=== PATIENT | male | born 1995 | race Caucasian/White ===

== ENCOUNTER 2017-04-14 22:33 | Emergency (ER) | payer OTHER ==
[2017-04-14 22:38] VITALS: BP 136/63
--- NOTE | 2017-04-14 22:41 | ER Document Report ---
HPI - HPI Patient complains to provider of: mouth lesion, face rash, tongue yellow Onset: This morning Onset/Duration: Sudden Pain Level: 3 Context: 21 yo anxious [employer] on leave due to right ankle injury, chews tobacco, c/o dry face patches, yellow discoloration to tongue and yellow patches inside left cheek. Worried he has HSV since 3 providers hipolito him he has genital HPV. Associated Symptoms: None Exacerbated by: Denies Relieved by: Denies Similar symptoms previously: No Recently seen / treated by doctor: No - ROS ROS below otherwise negative: Yes Systems Reviewed and Negative: Yes All other systems reviewed and negative Past Medical History - General Information source: Patient - Social History Smoking Status: Current Every Day Smoker Chew tobacco use (# tins/day): Yes Frequency of alcohol use: None Drug Abuse: None Lives with: Family Family History: Reviewed & Not Pertinent Renal/ Medical History: Reports: Other - HPV Past Surgical History: Reports: Hx Appendectomy Vertical Provider Document - CONSTITUTIONAL Agree With Documented VS: Yes Exam Limitations: No Limitations General Appearance: No Apparent Distress - INFECTION CONTROL TRAVEL OUTSIDE OF THE [place] IN LAST 30 DAYS: No - HEENT HEENT: Normocephalic Notes: dry patches on cheeks, dermatitis or eczema, mild inflamed. posterior tongue with hellow discoloration that does not come off with scraping. left cheek buccal mucosa with white/yellow adherant plaque versus leson. I explained to pt that it is very important that he stop tobacco chewing ang will need possible biopsy to rule out oral skin cancer. - NECK Neck: Supple. negative: Lymphadenopathy-Left, Lymphadenopathy-Right - RESPIRATORY O2 Sat by Pulse Oximetry: 99 - MUSCULOSKELETAL/EXTREMETIES Musculoskeletal/Extremeties: JAYLIN CORDOBA - NEURO Level of Consciousness: Awake, Alert - DERM Integumentary: Warm, Dry, Rash - he also points out minimal tiny papular bilater forearm rash that I can barely see. Course - Vital Signs Vital signs: Temp Pulse Resp BP Pulse Ox 98.7 F 99 18 136/63 H 99 04/14/17 22:37 04/14/17 22:37 04/14/17 22:37 04/14/17 22:37 04/14/17 22:37 Discharge - Discharge Clinical Impression: tongue discoloration, Facial dermatitis, left cheek plaque lesions Condition: Good Disposition: HOME, SELF-CARE Instructions: Atopic Dermatitis (Eczema) ([facility]), Mouth Sores ([facility]) Additional Instructions: stop using chewing tobacco you must see an oral surgeon about the left cheek plaque lesions, you may need a biopsy of this skin use Aquaphor ointment on your dry cheeks. hydrocortosone cream may help the exzema on the cheeks also to er any concerns Referrals: ASHLEY JOHNS DO [ACTIVE STAFF] - Follow up as needed JOSIAH BURTON DDS [ACTIVE STAFF] - Follow up as needed
== END 2017-04-14 23:05 | disposition home or self-care (01) ==
LOC: ER 22:33
DX: K13.70 Unspecified lesions of oral mucosa (principal); L30.9 Dermatitis, unspecified; F17.229 Nicotine dependence, chewing tobacco, with unspecified nicotine-induced disorders
CPT/HCPCS: 99282

== ENCOUNTER 2019-01-24 15:57 | Emergency (ER) | payer OTHER ==
[2019-01-24] MEDS ORDERED: OXYCODONE-ACETAMINOPHEN 5-325 MG TABLET PO ONE (17:12)
--- NOTE | 2019-01-24 17:13 | ER Document Report ---
HPI - HPI Time Seen by Provider: 01/24/19 17:00 Pain Level: 3 Notes: Patient is an otherwise healthy 23-year-old male presenting to the emergency department with complaints of right foot and ankle pain and swelling. Patient denies any recent trauma to this area. He denies any insect bites. He does report history of surgery to this area and states he has metal pins. - CONSTITUTIONAL Constitutional: DENIES: Fever, Chills - EENT EENT: DENIES: Sore Throat, Ear Pain, Eye problems - NEURO Neurology: DENIES: Headache, Weakness, Vision blurred, Dizzinesss / Vertigo - CARDIOVASCULAR Cardiovascular: DENIES: Chest pain - RESPIRATORY Respiratory: DENIES: Trouble Breathing, Coughing - GASTROINTESTINAL Gastrointestinal: DENIES: Abdominal Pain, Black / Bloody Stools - URINARY Urinary: DENIES: Dysuria, Urgency, Frequency - REPRODUCTIVE Reproductive: DENIES: : - MUSCULOSKELETAL Musculoskeletal: REPORTS: Extremity pain Past Medical History - General Information source: Patient - Social History Smoking Status: Never Smoker Chew tobacco use (# tins/day): Yes Frequency of alcohol use: None Drug Abuse: None Family History: Reviewed & Not Pertinent Patient has suicidal ideation: No Patient has homicidal ideation: No - Past Medical History Cardiac Medical History: Reports: Hx Hypertension Renal/ Medical History: Denies: Hx Peritoneal Dialysis Past Surgical History: Reports: Hx Appendectomy, Hx Orthopedic Surgery - right ankle Vertical Provider Document - CONSTITUTIONAL Notes: PHYSICAL EXAMINATION: GENERAL: Well-appearing, well-nourished and in no acute distress. HEAD: Atraumatic, normocephalic. EYES: Pupils equal round extraocular movements intact, conjunctiva are normal. ENT: Nares patent NECK: Normal range of motion LUNGS: No respiratory distress Musculoskeletal: Normal range of motion, swelling noted to right foot, strong dorsalis pedis pulse, strong posterior tibialis pulse. Slight erythema noted, no obvious infection. Normal motor and sensation distal to area of concern. NEUROLOGICAL: Normal speech, normal gait. PSYCH: Normal mood, normal affect. SKIN: Warm, Dry, normal turgor, no rashes or lesions noted. - INFECTION CONTROL TRAVEL OUTSIDE OF THE [place] IN LAST 30 DAYS: No Course - Re-evaluation Re-evalutation: Ankle X-Ray 01/24/19 17:13 IMPRESSION: Postsurgical changes of medial malleolus and distal fibula fixation without evidence of hardware complication. No acute bone abnormality. Foot X-Ray 01/24/19 17:13 IMPRESSION: Postsurgical changes of medial malleolus and distal fibula fixation without evidence of hardware complication. No acute bone abnormality. Radiology as outlined above. No fracture or dislocation noted. No acute bony abnormality. Possible this could be an atypical gout presentation will start patient on a round of prednisone. Patient encouraged to follow-up with primary care and/or orthopedics if pain continues. Patient verbalizes understanding and agreement with this plan. The patient's emergency department workup and current diagnosis were explained to the patient and or family. Follow-up instructions were provided. Medications if prescribed were discussed. Instructions for when to return to the emergency department including specific worrisome symptoms were discussed with the patient and/or family. - Vital Signs Vital signs: Temp Pulse Resp BP Pulse Ox 98.2 F 84 14 147/90 H 97 01/24/19 16:39 01/24/19 16:39 01/24/19 16:39 01/24/19 16:39 01/24/19 16:39 Procedures - Immobilization Right foot Pre-Proc Neuro Vasc Exam: Normal Immobilizer type: Dar wrap, Post-op shoe Performed by: PCT Post-Proc Neuro Vasc Exam: Normal Discharge - Discharge Clinical Impression: Right foot pain Condition: Stable Disposition: HOME, SELF-CARE Additional Instructions: Diagnosis: Acute right ankle and foot pain Ice & Elevation Apply ice packs frequently against the painful area. Many different schedules are recommended, such as "20 minutes on, 20 minutes off" or "one hour ice, two hours rest." If you need to work, you may need to go longer between ice treatments. You should plan to have the area ice packed AT LEAST one-fourth of the time. The ice should be applied over the wrap, tape, or splint, or over a layer of cloth -- not directly against the skin. Some ice bags have a built-in cloth and can be put directly on the skin. Your injured part should be elevated as much as possible over the next 48 hours. Try to keep the injury above the level of the heart. Avoid use of the injured area. Elevation and rest will decrease the swelling. Ibuprofen Ibuprofen is an excellent, safe drug for pain control. In addition, it has potent antiinflammatory effects which are beneficial, especially in the treatment of injuries, arthritis, or tendonitis. It's best to take ibuprofen with food. Persons with ulcer disease or allergy to aspirin should notify their physician of this before taking ibuprofen. Take the medication exactly as prescribed. Don't take additional doses unless instructed to do so by your doctor. If you develop wheezing, shortness of breath, hives, faintness, stomach pain, vomiting, or dark black stools, return for re-evaluation at once. The x-rays were negative for any fracture or dislocation. Please take ibuprofen [id number] as directed to help with pain and inflammation. Please take prednisone as prescribed. Call and schedule a follow-up appointment with primary care so that they can refer you to an orthopedic. A copy of your x-rays were given to you in this file. Prescriptions: Prednisone [Deltasone 20 mg Tablet] 3 tab PO DAILY 5 Days #15 tablet Forms: Return to Work Referrals: LILIAN PETERS, [ACTIVE STAFF] - Follow up as needed
--- NOTE | 2019-01-24 17:40 | RADIOLOGY REPORT (SQ) ---
EXAM DESCRIPTION: FOOT RIGHT COMPLETE; ANKLE RIGHT COMPLETE COMPLETED DATE/TIME: 01/24/2019 5:24 pm REASON FOR STUDY: RT FOOT PAIN; RT ANKLE PAIN COMPARISON: None. NUMBER OF VIEWS: Three views of both the foot and ankle. TECHNIQUE: AP, lateral and oblique radiographic images acquired of the right foot and ankle. LIMITATIONS: None. FINDINGS: MINERALIZATION: Normal. BONES: Postsurgical changes screw fixation of the medial malleolus and plate and screw fixation of th e distal fibula. No fixation hardware fracture or findings of loosening. No acute fracture or dislo cation. No worrisome bone lesions. JOINTS: No effusions. SOFT TISSUES: No soft tissue swelling. No foreign body. OTHER: No other significant finding. IMPRESSION: Postsurgical changes of medial malleolus and distal fibula fixation without evidence of hardware complication. No acute bone abnormality. TECHNICAL DOCUMENTATION: JOB ID: [id number] [employer]- All Rights Reserved Reading location - IP/workstation name: [email or web address]
--- NOTE | 2019-01-24 17:40 | RADIOLOGY REPORT (SQ) ---
EXAM DESCRIPTION: FOOT RIGHT COMPLETE; ANKLE RIGHT COMPLETE COMPLETED DATE/TIME: 01/24/2019 5:24 pm REASON FOR STUDY: RT FOOT PAIN; RT ANKLE PAIN COMPARISON: None. NUMBER OF VIEWS: Three views of both the foot and ankle. TECHNIQUE: AP, lateral and oblique radiographic images acquired of the right foot and ankle. LIMITATIONS: None. FINDINGS: MINERALIZATION: Normal. BONES: Postsurgical changes screw fixation of the medial malleolus and plate and screw fixation of th e distal fibula. No fixation hardware fracture or findings of loosening. No acute fracture or dislo cation. No worrisome bone lesions. JOINTS: No effusions. SOFT TISSUES: No soft tissue swelling. No foreign body. OTHER: No other significant finding. IMPRESSION: Postsurgical changes of medial malleolus and distal fibula fixation without evidence of hardware complication. No acute bone abnormality. TECHNICAL DOCUMENTATION: JOB ID: [id number] [email or web address]- All Rights Reserved Reading location - IP/workstation name: [email or web address]
[2019-01-24] MEDS ORDERED: PREDNISONE 20 MG TABLET PO ONE (18:23)
[2019-01-24 18:40] VITALS: BP 141/83
== END 2019-01-24 18:40 | disposition home or self-care (01) ==
LOC: ER 15:57
DX: M79.671 Pain in right foot (principal); I10 Essential (primary) hypertension
CPT/HCPCS: 99283; 73610; 73630; J7512

== ENCOUNTER 2019-08-14 17:21 | Emergency (ER) | payer OTHER ==
[2019-08-14 17:27] VITALS: BP 168/79
--- NOTE | 2019-08-14 17:30 | ER Document Report ---
HPI - HPI Time Seen by Provider: 08/14/19 17:25 Onset/Duration: Persistent Quality of pain: Achy Pain Level: 3 Context: Patient presents complaining of tender lump to the dorsal aspect of the left foot that he noticed 4 days ago. Patient denies any recent trauma to the foot. Patient denies any fever or redness. Patient complains of increased pain when he is wearing shoes. Associated Symptoms: denies: Fever Exacerbated by: Movement, Walking Relieved by: Denies Similar symptoms previously: No Recently seen / treated by doctor: No - ROS ROS below otherwise negative: Yes Systems Reviewed and Negative: Yes All other systems reviewed and negative - CONSTITUTIONAL Constitutional: DENIES: Fever - NEURO Neurology: DENIES: Weakness - MUSCULOSKELETAL Musculoskeletal: REPORTS: Extremity pain - DERM Skin Color: Normal Skin Problems: None Past Medical History - General Information source: Patient - Social History Smoking Status: Never Smoker Chew tobacco use (# tins/day): Yes Frequency of alcohol use: None Drug Abuse: None Occupation: [employer] Family History: Reviewed & Not Pertinent - Past Medical History Cardiac Medical History: Reports: Hx Hypertension Renal/ Medical History: Denies: Hx Peritoneal Dialysis Past Surgical History: Reports: Hx Appendectomy, Hx Orthopedic Surgery - R ankle Vertical Provider Document - CONSTITUTIONAL Agree With Documented VS: Yes Exam Limitations: No Limitations General Appearance: WD/WN, No Apparent Distress - INFECTION CONTROL TRAVEL OUTSIDE OF THE [place] IN LAST 30 DAYS: No - HEENT HEENT: Atraumatic, Normocephalic - NECK Neck: Normal Inspection - RESPIRATORY Respiratory: No Respiratory Distress - CARDIOVASCULAR Pulses: Normal: Dorsalis pedis - MUSCULOSKELETAL/EXTREMETIES Musculoskeletal/Extremeties: MAEW, FROM, Tender - Patient with a mobile 1/4 centimeters diameter subcutaneous nodular lesion, no overlying erythema or edema. No calor. - NEURO Level of Consciousness: Awake, Alert, Appropriate Motor/Sensory: No Motor Deficit - DERM Integumentary: Warm, Dry Course - Re-evaluation Re-evalutation: 08/14/19 Patient with subcutaneous mobile lesion suspicious for likely ganglion cyst. Discussed worsening signs or symptoms of patient should return immediately for. Patient encouraged to follow-up with orthopedic surgeon for definitive management. - Vital Signs Vital signs: Temp Pulse Resp BP Pulse Ox 98.7 F 89 16 168/79 H 99 08/14/19 17:25 08/14/19 17:25 08/14/19 17:25 08/14/19 17:25 08/14/19 17:25 Discharge - Discharge Clinical Impression: Subcutaneous cyst Condition: Stable Disposition: HOME, SELF-CARE Instructions: Ganglion Cyst ([facility]), Use of [id number] Ibuprofen ([facility]) Additional Instructions: Return immediately for any new or worsening symptoms Followup with your primary care provider, call tomorrow to make a followup appointment Follow-up with orthopedic surgeon for removal Referrals: RIK BHANDARI JR, DO [ACTIVE PROVISIONAL STAFF] - Follow up as needed
== END 2019-08-14 17:33 | disposition home or self-care (01) ==
LOC: ER 17:21
DX: M67.40 Ganglion, unspecified site (principal); Z72.0 Tobacco use; I10 Essential (primary) hypertension
CPT/HCPCS: 99283

== ENCOUNTER 2019-08-30 22:41 | Emergency (ER) | payer OTHER ==
--- NOTE | 2019-08-30 23:36 | ER Document Report ---
ED Medical Screen (RME) - General Chief Complaint: Skin Problem Stated Complaint: POSSIBLE CYST ON LEFT FOOT Time Seen by Provider: 08/30/19 23:34 Notes: HPI: 23-year-old male presenting with continued pain to a tender area on the lateral left dorsal foot. Patient states he was seen previously told he had a cyst in that area but [facility] but cannot wear his boots at work because of the discomfort. Is requesting reexamination of the area. States he did not have an x-ray last time but denies acute trauma PHYSICAL EXAMINATION: There is a small mobile mildly tender area on the lateral aspect of the left midfoot on the dorsal portion. No overlying erythema. No tenderness on the plantar aspect of the foot I have greeted and performed a rapid initial assessment of this patient. A comprehensive ED assessment and evaluation of the patient, analysis of test results and completion of medical decision making process will be conducted by an additional ED providers. TRAVEL OUTSIDE OF THE [place] IN LAST 30 DAYS: No - Related Data Allergies/Adverse Reactions: cephalexin [From Keflex] Allergy (Verified 08/14/19 17:26) Penicillins Allergy (Verified 08/14/19 17:26) Past Medical History - Social History Chew tobacco use (# tins/day): Yes - Past Medical History Cardiac Medical History: Reports: Hx Hypertension Renal/ Medical History: Denies: Hx Peritoneal Dialysis Past Surgical History: Reports: Hx Appendectomy, Hx Orthopedic Surgery - R ankle Physical Exam - Vital signs Vitals: Temp Pulse Resp BP Pulse Ox 98.7 F 90 16 162/78 H 98 08/30/19 22:47 08/30/19 22:47 08/30/19 22:47 08/30/19 22:47 08/30/19 22:47 Course - Vital Signs Vital signs: Temp Pulse Resp BP Pulse Ox 98.7 F 90 16 162/78 H 98 08/30/19 23:09 08/30/19 22:47 08/30/19 22:47 08/30/19 22:47 08/30/19 22:47
--- NOTE | 2019-08-31 00:33 | RADIOLOGY REPORT (SQ) ---
EXAM DESCRIPTION: XR FOOT 3 OR MORE VIEWS COMPLETED DATE/TME: 08/30/2019 23:34 CLINICAL HISTORY: 23 years Male, lateral foot pain COMPARISON: None. Findings: Bones, joints, and soft tissues of the LEFT XR FOOT 3 OR MORE VIEWS appear intact. IMPRESSION: No acute findings.
--- NOTE | 2019-08-31 01:25 | ER Document Report ---
HPI - HPI Time Seen by Provider: 08/30/19 23:34 Pain Level: 4 Notes: RME HPI: 23-year-old male presenting with continued pain to a tender area on the lateral left dorsal foot. Patient states he was seen previously told he had a cyst in that area but [facility] but cannot wear his boots at work because of the discomfort. Is requesting reexamination of the area. States he did not have an x-ray last time but denies acute trauma - EENT EENT: DENIES: Sore Throat, Ear Pain, Eye problems - CARDIOVASCULAR Cardiovascular: DENIES: Chest pain - RESPIRATORY Respiratory: DENIES: Trouble Breathing, Coughing - REPRODUCTIVE Reproductive: DENIES: : - MUSCULOSKELETAL Musculoskeletal: REPORTS: Extremity pain Past Medical History - General Information source: Patient - Social History Smoking Status: Current Every Day Smoker Chew tobacco use (# tins/day): Yes Frequency of alcohol use: None Drug Abuse: None Family History: Reviewed & Not Pertinent Patient has homicidal ideation: Yes - Past Medical History Cardiac Medical History: Reports: Hx Hypertension Renal/ Medical History: Denies: Hx Peritoneal Dialysis Past Surgical History: Reports: Hx Appendectomy, Hx Orthopedic Surgery - R ankle Vertical Provider Document - CONSTITUTIONAL Notes: PHYSICAL EXAMINATION: GENERAL: Well-appearing, well-nourished and in no acute distress. HEAD: Atraumatic, normocephalic. EYES: Pupils equal round extraocular movements intact, conjunctiva are normal. ENT: Nares patent NECK: Normal range of motion LUNGS: No respiratory distress Musculoskeletal: Normal range of motion, small mobile mildly tender area on the lateral aspect of the left midfoot on the dorsal portion. No overlying erythema. No tenderness on the plantar aspect of the foot NEUROLOGICAL: Normal speech. PSYCH: Normal mood, normal affect. SKIN: Warm, Dry, normal turgor, no rashes or lesions noted. - INFECTION CONTROL TRAVEL OUTSIDE OF THE [place] IN LAST 30 DAYS: No Course - Re-evaluation Re-evalutation: 08/31/19 01:20 X-ray negative today. Patient requesting crutches. Will start patient on Toradol for pain. Encourage patient to please contact [place] in [place] of getting a sooner appointment. - Vital Signs Vital signs: Temp Pulse Resp BP Pulse Ox 98.7 F 90 16 162/78 H 98 08/30/19 23:09 05/22/20 22:47 08/30/19 22:47 08/30/19 22:47 08/30/19 22:47 Discharge - Discharge Clinical Impression: Ganglion cyst of left foot Condition: Stable Disposition: HOME, SELF-CARE Additional Instructions: Please use the crutches to stay off the foot to help with your pain. Take the pain medication that I have prescribed. Call the [place] and try to get a sooner follow-up appointment. Ganglion Cyst A ganglion cyst is jelly-like material inside a tough coating. The cyst usually forms near an old tendon injury. Symptoms begin when the cyst gets big enough to "get in the way." If the cyst is not growing and not hurting, it doesn't need treatment. Symptoms of a cyst can be eased by injection of cortisone. The cysts can be reduced in size by sucking the jelly material out of it (the cyst will usually grow back). A splint helps ease symptoms. We often give oral antiinflammatory medicine. Large cysts, or those that continue to cause pain, should be removed surgically. Come back if the area becomes increasingly red, swollen, or increasingly tender. Prescriptions: Ketorolac Tromethamine [Toradol 10 mg Tablet] 10 mg PO Q6HP PRN #24 tablet PRN Reason: Forms: Special Work Note
[2019-08-31 01:55] VITALS: BP 146/72
== END 2019-08-31 01:55 | disposition home or self-care (01) ==
LOC: ER 22:41
DX: M67.472 Ganglion, left ankle and foot (principal); M79.672 Pain in left foot; F17.290 Nicotine dependence, other tobacco product, uncomplicated
CPT/HCPCS: 99283

== ENCOUNTER 2019-11-04 18:39 | Emergency (ER) | payer OTHER ==
[2019-11-04] MEDS ORDERED: DEXAMETHASONE SOD PHOS INJ 10 MG/1 ML VIAL IM ONE (19:55)
--- NOTE | 2019-11-04 19:59 | ER Document Report ---
ED Skin Rash/Insect Bite/Abscs - General Chief Complaint: Skin Problem Stated Complaint: POSSIBLE POISON MEMO Time Seen by Provider: 11/04/19 19:54 Mode of Arrival: Ambulatory Information source: Patient TRAVEL OUTSIDE OF THE [place] IN LAST 30 DAYS: No - HPI Patient complains to provider of: Skin rash/lesion Onset: Last week Onset/Duration: Gradual, Persistent, Worse Quality of pain: Achy Severity: Severe Pain Level: 4 Skin Character: Erythema, Macules, Papules, Patchy, Rash, Thickening Skin Temperature: Warm Quality of rash: Itchy Identify cause: Yes - Poison memo Other exposure: Poison memo Exacerbated by: Other - Heat Relieved by: Denies Similar symptoms previously: Yes Recently seen / treated by doctor: No - Related Data Allergies/Adverse Reactions: cephalexin [From Keflex] Allergy (Verified 08/14/19 17:26) Penicillins Allergy (Verified 08/14/19 17:26) Past Medical History - General Information source: Patient - Social History Smoking Status: Never Smoker Chew tobacco use (# tins/day): Yes Smoking Education Provided: No Frequency of alcohol use: None Drug Abuse: None Family History: Reviewed & Not Pertinent Patient has homicidal ideation: No - Past Medical History Cardiac Medical History: Reports: Hx Hypertension Renal/ Medical History: Denies: Hx Peritoneal Dialysis Past Surgical History: Reports: Hx Appendectomy, Hx Orthopedic Surgery - R ankle Review of Systems - Review of Systems Constitutional: No symptoms reported EENT: No symptoms reported Cardiovascular: No symptoms reported Respiratory: No symptoms reported Gastrointestinal: No symptoms reported Genitourinary: No symptoms reported Male Genitourinary: No symptoms reported Musculoskeletal: No symptoms reported Skin: See HPI, Rash Hematologic/Lymphatic: No symptoms reported Neurological/Psychological: No symptoms reported -: Yes All other systems reviewed and negative Physical Exam - Vital signs Vitals: Temp Pulse Resp BP Pulse Ox 98.8 F 106 H 18 138/60 H 97 11/04/19 19:08 11/04/19 19:08 11/04/19 19:08 11/04/19 19:08 11/04/19 19:08 Interpretation: Hypertensive, Tachycardic - Notes Notes: PHYSICAL EXAMINATION: GENERAL: Patient is a well-nourished well-developed 24-year-old male who is no apparent distress but is obviously in a lot of discomfort. Patient cannot find a position of comfort secondary to the type of rash he has on his lower extremities and upper arms. HEAD: Atraumatic, normocephalic. EYES: Pupils equal round and reactive to light, extraocular movements intact, sclera anicteric, conjunctiva are normal. ENT: Nares patent, oropharynx clear without exudates. Moist mucous membranes. LUNGS: Breath sounds clear to auscultation bilaterally and equal. No wheezes rales or rhonchi. HEART: Regular rate and rhythm without murmurs ABDOMEN: Soft, nontender, nondistended abdomen. No guarding, no rebound. No masses appreciated. Musculoskeletal: Normal range of motion, no pitting or edema. No cyanosis. NEUROLOGICAL: Normal speech, normal gait. Normal sensory, motor exams PSYCH: Normal mood, normal affect. SKIN: Examination patient's area concern is his lower extremities upper extremities and trunk and back. Patient started with a bout of contact dermatitis which turned out to be poison memo about 1 week ago. It is steadily spread throughout his entire body. Patient is very pruritic and has starting to get excoriations from his itching. Currently there is no sign of any infection. Course - Vital Signs Vital signs: Temp Pulse Resp BP Pulse Ox 98.8 F 106 H 18 138/60 H 97 11/04/19 19:08 11/04/19 19:08 11/04/19 19:08 11/04/19 19:08 11/04/19 19:08 Discharge - Discharge Clinical Impression: Contact dermatitis Qualifiers: Contact dermatitis type: unspecified Contact dermatitis trigger: non-food plants Qualified Code(s): L25.5 - Unspecified contact dermatitis due to plants, except food Condition: Stable Disposition: HOME, SELF-CARE Instructions: Contact Dermatitis ([facility]), Poison Memo ([facility]) Additional Instructions: You need to go home and rest. Stay in a cool environment for the next 48 hours and let the medication do its job. He has a tendency to make this more pronounced. He can also take Benadryl 50 mg every 6 hours for the itching. You may also go to the tractor supply and ask for the cream that treats poison sumac and poison memo it does a wonderful job. Also you may try Benadryl cream that will help with the itch. Take all the steroids until finished. Prescriptions: Prednisone 10 mg PO ASDIR #21 [id number] Forms: Elevated Blood Pressure, Return to Work Referrals: [facility] [Provider Group] - Follow up as needed
[2019-11-05 00:09] VITALS: BP 138/64
== END 2019-11-04 20:10 | disposition home or self-care (01) ==
LOC: ER 18:39
DX: L23.7 Allergic contact dermatitis due to plants, except food (principal); I10 Essential (primary) hypertension; Z72.0 Tobacco use; Z88.1 Allergy status to other antibiotic agents; Z88.0 Allergy status to penicillin
CPT/HCPCS: 99282; 96372; J1100

== ENCOUNTER 2020-01-21 18:36 | Emergency (ER) | payer OTHER ==
--- NOTE | 2020-01-21 18:44 | ER Document Report ---
ED Medical Screen (RME) - General Chief Complaint: Numbness Stated Complaint: NUMBNESS Time Seen by Provider: 01/21/20 18:40 Mode of Arrival: Ambulatory Information source: Patient Notes: HPI; a 24-year-old male presents to the emergency room with sudden onset of numbness to fingers of both hands. Patient states symptoms started at 1 PM. Also complaining of some right-sided facial numbness. Patient states he does take a dietary supplement and C4 pre-workout which he took this morning took a nap and woke up with the symptoms. He denies any chest pain, shortness of breath, no difficulty breathing. No known COVID-19 exposure. PE: Alert and oriented x3. Patient has decreased sensation to the right side of his face. Remaining neurological exam is intact. Strength is equal and adequate bilaterally. Lungs: Clear to auscultation without rales, rhonchi, wheezes. Heart: Regular rate rhythm without murmurs, rubs, gallops. I have greeted and performed a rapid initial assessment of this patient. A comprehensive ED assessment and evaluation of the patient, analysis of test results and completion of the medical decision making process will be conducted by additional ED providers. I have specifically instructed the patient or family members with the patient to immediately return to any nursing staff should anything change in the patient's condition or with their chief complaint. TRAVEL OUTSIDE OF THE [place] IN LAST 30 DAYS: No - Related Data Allergies/Adverse Reactions: cephalexin [From Keflex] Allergy (Verified 08/14/19 17:26) Penicillins Allergy (Verified 08/14/19 17:26) Past Medical History - Past Medical History Cardiac Medical History: Reports: Hx Hypertension Renal/ Medical History: Denies: Hx Peritoneal Dialysis Past Surgical History: Reports: Hx Appendectomy, Hx Orthopedic Surgery - R ankle
--- NOTE | 2020-01-21 19:07 | RADIOLOGY REPORT (SQ) ---
EXAM DESCRIPTION: CT HEAD WITHOUT IMAGES COMPLETED DATE/TIME: 01/21/2020 6:49 pm REASON FOR STUDY: right facial numbness COMPARISON: 2010 TECHNIQUE: Axial images acquired through the brain without intravenous contrast. Images reviewed wi th bone, brain and subdural windows. Additional sagittal and coronal reconstructions were generated. Images stored on PACS. All CT scanners at this facility use dose modulation, iterative reconstruction, and/or weight based d osing when appropriate to reduce radiation dose to as low as reasonably achievable (ALARA). [facility]: Dose Right [facility]: CareDose [facility]: Dose Right [facility]: Teradose 4D [facility]: [employer] RADIATION DOSE: CT Rad equipment meets quality standard of care and radiation dose reduction techniq ues were employed. CTDIvol: 53.2 mGy. DLP: 991 mGy-cm. mGy. LIMITATIONS: None. FINDINGS: VENTRICLES: Normal size and contour. CEREBRUM: No masses. No hemorrhage. No midline shift. No evidence for acute infarction. Normal gra y/white matter differentiation. No areas of low density in the white matter. CEREBELLUM: No masses. No hemorrhage. No alteration of density. No evidence for acute infarction. EXTRAAXIAL SPACES: No fluid collections. No masses. ORBITS AND GLOBE: No intra- or extraconal masses. Normal contour of globe without masses. CALVARIUM: No fracture. PARANASAL SINUSES: No fluid or mucosal thickening. SOFT TISSUES: No mass or hematoma. OTHER: No other significant finding. IMPRESSION: NORMAL BRAIN CT WITHOUT CONTRAST. EVIDENCE OF ACUTE STROKE: NO. COMMENT: Quality ID # [id number]: Final reports with documentation of one or more dose reduction techniques (e.g., Automated exposure control, adjustment of the mA and/or kV according to patient size, use of iterative reconstruction technique) TECHNICAL DOCUMENTATION: JOB ID: [id number] 2010 [employer]- All Rights Reserved Reading location - IP/workstation name: [email or web address]
--- NOTE | 2020-01-21 19:08 | RADIOLOGY REPORT (SQ) ---
EXAM DESCRIPTION: CHEST SINGLE VIEW IMAGES COMPLETED DATE/TIME: 01/21/2020 5:51 pm REASON FOR STUDY: right facial numbness COMPARISON: None. EXAM PARAMETERS: NUMBER OF VIEWS: One view. TECHNIQUE: Single frontal radiographic view of the chest acquired. RADIATION DOSE: NA LIMITATIONS: None. FINDINGS: LUNGS AND PLEURA: No opacities, masses or pneumothorax. No pleural effusion. MEDIASTINUM AND HILAR STRUCTURES: No masses. Contour normal. HEART AND VASCULAR STRUCTURES: Heart normal in size. Normal vasculature. BONES: No acute findings. HARDWARE: None in the chest. OTHER: No other significant finding. IMPRESSION: NO ACUTE RADIOGRAPHIC FINDING IN THE CHEST. TECHNICAL DOCUMENTATION: JOB ID: [id number] 2010 [employer]- All Rights Reserved Reading location - IP/workstation name: [email or web address]
[2020-01-21 19:24] LABS: INTERNATIONAL RATION (INR) 0.83; PROTHROMBIN TIME 11.6 SEC (11.4-15.4)
[2020-01-21 19:25] LABS: PARTIAL THROMBOPLASTIN TIME 26.2 SEC (23.5-35.8)
[2020-01-21 19:32] LABS: ABSOLUTE EOSINOPHILS # (AUTO) 0.1 10^3/uL (0.0-0.6); ABSOLUTE LYMPHOCYTES (AUTO) 2.4 10^3/uL (0.5-4.7); ABSOLUTE MONOCYTES (AUTO) 0.7 10^3/uL (0.1-1.4); ABSOLUTE NEUT (AUTO) 6.4 10^3/uL (1.7-8.2); BASOPHILS % (AUTO) 0.5 % (0-2); EOSINOPHILS % (AUTO) 1.4 % (0-6); HEMATOCRIT 46.8 % (37.9-51.0); HEMOGLOBIN 16.6 g/dL (13.5-17.0); LYMPHOCYTES % (AUTO) 25.1 % (13-45); MEAN CORPUSCULAR HEMOGLOBIN 30.4 pg (27.0-33.4); MEAN CORPUSCULAR HGB CONC 35.5 g/dL (32.0-36.0); MEAN CORPUSCULAR VOLUME 86 fl (80-97); MONOCYTES % (AUTO) 7.5 % (3-13); PLATELET COUNT 269 10^3/uL (150-450); RED BLOOD COUNT 5.45 10^6/uL (4.35-5.55); RED CELL DISTRIBUTION WIDTH 13.6 % (11.5-14.0); SEGMENTED NEUTROPHILS % (AUTO) 65.5 % (42-78); TOTAL CELLS COUNTED % (AUTO) 100 %; WHITE BLOOD COUNT 9.8 10^3/uL (4.0-10.5)
[2020-01-21 19:46] LABS: ALBUMIN 4.8 g/dL (3.5-5.0); ALKALINE PHOSPHATASE 97 U/L (38-126); ANION GAP 13 (5-19); ASPARTATE AMINO TRANSFERASE 64 U/L (17-59); BILIRUBIN,DIRECT 0.3 mg/dL (0.0-0.4); BILIRUBIN,TOTAL 0.6 mg/dL (0.2-1.3); BLOOD UREA NITROGEN 13 mg/dL (7-20); CALCIUM 10.2 mg/dL (8.4-10.2); CARBON DIOXIDE 24 mmol/L (22-30); CHLORIDE 102 mmol/L (98-107); CREATINE KINASE 787 U/L (55-170); GLUCOSE 114 mg/dL (75-110); POTASSIUM 4.1 mmol/L (3.6-5.0); TOTAL PROTEIN 7.7 g/dL (6.3-8.2)
--- NOTE | 2020-01-21 19:47 | EKG REPORT ---
SEVERITY:- NORMAL ECG - SINUS RHYTHM : Confirmed by: Andra Berg 21-Jan-2020 19:46:47
[2020-01-21 19:58] LABS: CREATINE KINASE MB 5.25 ng/mL (<4.55)
[2020-01-21 19:59] LABS: TROPONIN I < 0.012 ng/mL
--- NOTE | 2020-01-21 20:46 | ER Document Report ---
ED Neuro Symptoms/Deficit - General Chief Complaint: Numbness Stated Complaint: NUMBNESS Time Seen by Provider: 01/21/20 18:40 Primary Care Provider: TANNER,FREDDY [Primary Care Provider] - Follow up as needed Mode of Arrival: Ambulatory Information source: Patient Notes: ED Medical Screen ([place]) - General Chief Complaint: Numbness Stated Complaint: NUMBNESS Time Seen by Provider: 01/21/20 18:40 Mode of Arrival: Ambulatory Information source: Patient Notes: HPI; a 24-year-old male presents to the emergency room with sudden onset of numbness to fingers of both hands. Patient states symptoms started at 1 PM. Also complaining of some right-sided facial numbness. Patient states he does take a dietary supplement and C4 pre-workout which he took this morning took a nap and woke up with the symptoms. He denies any chest pain, shortness of breath, no difficulty breathing. No known COVID-19 exposure. PE: Alert and oriented x3. Patient has decreased sensation to the right side of his face. Remaining neurological exam is intact. Strength is equal and adequate bilaterally. Lungs: Clear to auscultation without rales, rhonchi, wheezes. Heart: Regular rate rhythm without murmurs, rubs, gallops. I have greeted and performed a rapid initial assessment of this patient. A comprehensive ED assessment and evaluation of the patient, analysis of test results and completion of the medical decision making process will be conducted by additional ED providers. I have specifically instructed the patient or family members with the patient to immediately return to any nursing staff should anything change in the patient's condition or with their chief complaint. TRAVEL OUTSIDE OF THE [place] 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 He actually has been running 2 miles a day for 1 week. He also works out with weights but today at 1 PM he began after nap and noticed he had numbness of his extremities and also right sided facial numbness. He denies any breathing problems or nasal problems or loss of taste or smell. Patient denies any chest pain abdominal pain dysuria diarrhea constipation nuchal rigidity skin rash animal bites human bites exposure to fo plate from [place] from 1 days before [employer] exposure to coronavirus or flu virus. Patient reports he has been hypertensive diagnosis since he was 12 years old and initially was on blood pressure medicine for over the past several years has not been." TRAVEL OUTSIDE OF THE [place] IN LAST 30 DAYS: No - HPI Patient complains to provider of: Weakness Onset: This afternoon Awoke with symptoms: Yes Symptoms are: Constant Duration: Continues in ED Quality of pain: Other - facial hand numbness Severity: Mild Pain Level: 1 Loss of consciousness: No loss of consciousness Was STROKE ALERT Called: Yes Baseline Cognitive: Alert, oriented X 3 Baseline Gait: Walks w/o assistance - Related Data Allergies/Adverse Reactions: cephalexin [From Keflex] Allergy (Verified 08/14/19 17:26) Penicillins Allergy (Verified 08/14/19 17:26) Past Medical History - General Information source: Patient - Social History Smoking Status: Never Smoker Cigarette use (# per day): No Chew tobacco use (# tins/day): No Smoking Education Provided: No Frequency of alcohol use: None Drug Abuse: None Lives with: Family Family History: Reviewed & Not Pertinent, Hypertension Patient has suicidal ideation: No Patient has homicidal ideation: No - Past Medical History Cardiac Medical History: Reports: Hx Hypertension Renal/ Medical History: Denies: Hx Peritoneal Dialysis Past Surgical History: Reports: Hx Appendectomy, Hx Orthopedic Surgery - R ankle Review of Systems - Review of Systems Constitutional: No symptoms reported EENT: No symptoms reported Cardiovascular: No symptoms reported Respiratory: No symptoms reported Gastrointestinal: No symptoms reported Genitourinary: No symptoms reported Male Genitourinary: No symptoms reported Musculoskeletal: See HPI, Muscle stiffness Skin: No symptoms reported Hematologic/Lymphatic: No symptoms reported Neurological/Psychological: No symptoms reported, Numbness -: Yes All other systems reviewed and negative Physical Exam - Vital signs Vitals: Temp Pulse Resp BP Pulse Ox 98.4 F 80 18 173/85 H 100 10/13/20 18:41 01/21/20 18:41 01/21/20 18:41 01/21/20 18:41 01/21/20 18:41 Interpretation: Normal - General General appearance: Appears well, Alert - HEENT Head: Normocephalic, Atraumatic Eyes: Normal Pupils: PERRL - Respiratory Respiratory status: No respiratory distress Chest status: Nontender Breath sounds: Normal Chest palpation: Normal - Cardiovascular Rhythm: Regular Heart sounds: Normal auscultation Murmur: No - Abdominal Inspection: Normal Distension: No distension Bowel sounds: Normal Tenderness: Nontender Organomegaly: No organomegaly - Rectal Prostate: Other - deferred - Genitourinary Scrotum: Other - deferred - Back Back: Normal, Nontender - Extremities General upper extremity: Normal inspection, Nontender, Normal color, Normal ROM, Normal temperature General lower extremity: Normal inspection, Nontender, Normal color, Normal ROM, Normal temperature, Normal weight bearing. No: Abhinav's sign - Neurological Neuro grossly intact: Yes Cognition: Normal Orientation: AAOx4 Jose Coma Scale Eye Opening: Spontaneous [place] Coma Scale Verbal: Oriented [place] Coma Scale Motor: Obeys Commands Jose Coma Scale Total: 15 Speech: Normal Motor strength normal: LUE, RUE, LLE, RLE Sensory: Altered light touch - To bilateral hands and right facial skin. - Psychological Associated symptoms: Normal affect, Normal mood - Skin Skin Temperature: Warm Skin Moisture: Dry Skin Color: Normal Course - Vital Signs Vital signs: Temp Pulse Resp BP Pulse Ox 98.5 F 72 17 133/79 H 95 01/21/20 20:46 01/21/20 20:34 01/21/20 21:51 01/21/20 21:51 01/21/20 21:51 - Laboratory Result Diagrams: 01/21/20 18:59 01/21/20 18:59 Laboratory results interpreted by me: 01/21/20 01/21/20 18:59 18:59 Glucose 114 H AST 64 H ALT 57 H Creatine Kinase 787 H CK-MB (CK-2) 5.25 H - Diagnostic Test Radiology reviewed: Reports reviewed - CT MRI head neg Critical Care Note - Critical Care Note Comments: I advised patient of his CT MRI findings that were negative. Also his labs are positive for CK Discharge - Discharge Clinical Impression: Elevated CPK, Numbness and tingling in both hands, Neuropathy Hypertension Qualifiers: Hypertension type: unspecified Qualified Code(s): I10 - Essential (primary) hypertension Condition: Stable Disposition: HOME, SELF-CARE Additional Instructions: Follow-up with personal doctor this week return to ER as needed for true emergencies take medicines as directed encourage fluids and avoid excessive exercise for the next 1 week. You may walk for short distances only. Take Decadron 1 tablet daily avoid taking the C4 energy booster powder that has caffeine and branched amino acids Prescriptions: Dexamethasone [Decadron 4 Mg Tablet] 4 mg PO DAILY #5 tablet Forms: Return to Work Referrals: [facility] [[facility]] - Follow up as needed
[2020-01-21 21:33] LABS: APPEARANCE,URINE CLEAR; BILIRUBIN,URINE NEGATIVE (NEGATIVE); COLOR,URINE YELLOW; GLUCOSE, URINE NEGATIVE (NEGATIVE); KETONES,URINE NEGATIVE (NEGATIVE); LEUKOCYTE ESTERASE,URINE NEGATIVE (NEGATIVE); NITRITE,URINE NEGATIVE (NEGATIVE); PROTEIN,URINE NEGATIVE (NEGATIVE); URINE SPECIFIC GRAVITY 1.012; UROBILINOGEN,URINE NEGATIVE mg/dL (<2.0)
[2020-01-21 21:48] LABS: URINE AMPHETAMINES SCREEN NEGATIVE; URINE BARBITURATES SCREEN NEGATIVE; URINE BENZODIAZEPINES SCREEN NEGATIVE; URINE COCAINE SCREEN NEGATIVE; URINE MARIJUANA (THC) SCREEN NEGATIVE; URINE METHADONE SCREEN NEGATIVE; URINE PHENCYCLIDINE SCREEN NEGATIVE
--- NOTE | 2020-01-21 22:06 | RADIOLOGY REPORT (SQ) ---
MRI head without contrast on 01/21/2020 at 9:28 PM CLINICAL INDICATION: Right facial numbness, numbness and tingling all over TECHNIQUE: Multiplanar, multisequence MR images are obtained throughout the head without the administration of contrast. This examination was performed on a 1.5 Marry magnet. COMPARISON: CT from 01/21/2020 FINDINGS: Sagittal midline view shows a normal appearance of the midline structures. There is a normal appearance of the craniovertebral junction. Diffusion-weighted imaging shows no evidence of acute infarct. Flow related signal within the major intracranial vessels is preserved. There is no hydrocephalus. Gradient echo imaging shows no evidence of hemorrhage. There is no mass, mass effect or midline shift. IMPRESSION: No acute intracranial abnormality.
[2020-01-21] MEDS ORDERED: DEXAMETHASONE SOD PHOS INJ 10 MG/1 ML VIAL IV ONE (23:41)
[2020-01-22 00:50] VITALS: BP 137/70
== END 2020-01-22 01:02 | disposition home or self-care (01) ==
LOC: ER 18:36
DX: G62.9 Polyneuropathy, unspecified (principal); R20.2 Paresthesia of skin; R20.0 Anesthesia of skin; R53.1 Weakness; R79.89 Other specified abnormal findings of blood chemistry; I10 Essential (primary) hypertension; Z79.899 Other long term (current) drug therapy; Z88.1 Allergy status to other antibiotic agents; Z88.0 Allergy status to penicillin
CPT/HCPCS: 93005; 99285; 96374; 36415; 82553; 82962; 82550; 85025; 85610; 85730; 80053; 81001; 84484; 80307; 70551; 71045; 70450; 93010; J1100

== ENCOUNTER 2020-01-23 13:14 | Emergency (ER) | payer OTHER ==
--- NOTE | 2020-01-23 13:58 | ER Document Report ---
ED Medical Screen (RME) - General Chief Complaint: Chest Pain Stated Complaint: CHEST PAIN Time Seen by Provider: 01/23/20 13:48 Primary Care Provider: TANNER,FREDDY [Primary Care Provider] - Follow up as needed TRAVEL OUTSIDE OF THE [place] IN LAST 30 DAYS: No - HPI Notes: 01/23/20 13:57 24-year-old male to the emergency department via EMS with complaints of chest pain that has gotten worse over the past several days. He states he was seen here Monday for numbness. He states the numbness started after he had been taking C4 pre-workout. He states that he was told that he had an elevated CPK level. States he was given steroids and sent home with steroids to take. States he has been faithfully taking the medicine but just feeling worse and worse. He states he feels like his heart is palpitating and admits to some diaphoresis and nausea. He denies any drug abuse. He is not a smoker. He was given 1 L of LR via EMS. I performed a brief medical screening exam on the p atient determined that the patient needs further evaluation and management by main side provider. I have placed initial orders to help expedite care. - Related Data Allergies/Adverse Reactions: cephalexin [From Keflex] Allergy (Verified 08/14/19 17:26) Penicillins Allergy (Verified 08/14/19 17:26) Past Medical History - Social History Chew tobacco use (# tins/day): No Frequency of alcohol use: None Drug Abuse: None - Past Medical History Cardiac Medical History: Reports: Hx Hypertension Renal/ Medical History: Denies: Hx Peritoneal Dialysis Past Surgical History: Reports: Hx Appendectomy, Hx Orthopedic Surgery - R ankle Physical Exam - Vital signs Vitals: Temp 98.8 F 01/23/20 13:49 Course - Vital Signs Vital signs: Temp Pulse Resp BP Pulse Ox 98.8 F 83 18 159/60 H 97 01/23/20 13:55 01/23/20 13:55 01/23/20 13:55 01/23/20 13:55 01/23/20 13:55 Doctor's Discharge - Discharge Referrals: [facility] [[facility]] - Follow up as needed
[2020-01-23 14:49] LABS: ABSOLUTE MONOCYTES (AUTO) 0.5 10^3/uL (0.1-1.4); BASOPHILS % (AUTO) 0.1 % (0-2); HEMOGLOBIN 15.5 g/dL (13.5-17.0); LYMPHOCYTES % (AUTO) 6.8 % (13-45); MEAN CORPUSCULAR HEMOGLOBIN 30.6 pg (27.0-33.4); MEAN CORPUSCULAR HGB CONC 35.3 g/dL (32.0-36.0); MEAN CORPUSCULAR VOLUME 87 fl (80-97); MONOCYTES % (AUTO) 3.7 % (3-13); PLATELET COUNT 258 10^3/uL (150-450); RED BLOOD COUNT 5.07 10^6/uL (4.35-5.55); RED CELL DISTRIBUTION WIDTH 13.8 % (11.5-14.0); SEGMENTED NEUTROPHILS % (AUTO) 89.4 % (42-78); TOTAL CELLS COUNTED % (AUTO) 100 %; WHITE BLOOD COUNT 14.6 10^3/uL (4.0-10.5)
[2020-01-23 14:54] LABS: INTERNATIONAL RATION (INR) 0.91; PROTHROMBIN TIME 12.5 SEC (11.4-15.4)
[2020-01-23 14:55] LABS: PARTIAL THROMBOPLASTIN TIME 24.7 SEC (23.5-35.8)
--- NOTE | 2020-01-23 14:57 | RADIOLOGY REPORT (SQ) ---
EXAM DESCRIPTION: CHEST SINGLE VIEW IMAGES COMPLETED DATE/TIME: 01/23/2020 2:45 pm REASON FOR STUDY: chest pain, palpitations COMPARISON: 01/21/2020 EXAM PARAMETERS: NUMBER OF VIEWS: One view. TECHNIQUE: Single frontal radiographic view of the chest acquired. RADIATION DOSE: NA LIMITATIONS: None. FINDINGS: LUNGS AND PLEURA: No opacities, masses or pneumothorax. No pleural effusion. MEDIASTINUM AND HILAR STRUCTURES: No masses. Contour normal. HEART AND VASCULAR STRUCTURES: Heart normal in size. Normal vasculature. BONES: No acute findings. HARDWARE: None in the chest. OTHER: No other significant finding. IMPRESSION: NO ACUTE RADIOGRAPHIC FINDING IN THE CHEST. TECHNICAL DOCUMENTATION: JOB ID: [id number] 2010 [employer]- All Rights Reserved Reading location - IP/workstation name: [email or web address]
[2020-01-23 15:19] LABS: ALBUMIN 4.4 g/dL (3.5-5.0); ALKALINE PHOSPHATASE 76 U/L (38-126); ANION GAP 11 (5-19); ASPARTATE AMINO TRANSFERASE 36 U/L (17-59); BILIRUBIN,DIRECT 0.3 mg/dL (0.0-0.4); BILIRUBIN,TOTAL 0.3 mg/dL (0.2-1.3); BLOOD UREA NITROGEN 13 mg/dL (7-20); CALCIUM 10.1 mg/dL (8.4-10.2); CARBON DIOXIDE 25 mmol/L (22-30); CHLORIDE 105 mmol/L (98-107); CREATINE KINASE 215 U/L (55-170); GLUCOSE 124 mg/dL (75-110); TOTAL PROTEIN 7.4 g/dL (6.3-8.2)
[2020-01-23 21:02] VITALS: BP 152/77
--- NOTE | 2020-01-23 21:22 | ER Document Report ---
ED Cardiac - General Chief Complaint: Chest Pain Stated Complaint: CHEST PAIN Time Seen by Provider: 01/23/20 13:48 Primary Care Provider: TANNER,FREDDY [Primary Care Provider] - Follow up as needed TRAVEL OUTSIDE OF THE [place] IN LAST 30 DAYS: No - HPI Notes: Patient is a 24-year-old male with no significant past medical history who presents with palpitations. There are several days ago for bilateral hand numbness. He had a normal MRI. At that time, he was taking C4 supplement and was told to stop taking it as he had mild rhabdo. Patient states he stopped the supplement. He was discharged with a prescription for dexamethasone which he has been taking. He states that since he started dexamethasone, he has palpitations. Denies shortness of breath. No pleuritic chest pain. He has no risk factors for PE or DVT. - Related Data Allergies/Adverse Reactions: cephalexin [From Keflex] Allergy (Verified 08/14/19 17:26) Penicillins Allergy (Verified 08/14/19 17:26) Past Medical History - General Information source: Patient - Social History Smoking Status: Never Smoker Chew tobacco use (# tins/day): No Frequency of alcohol use: None Drug Abuse: None Family History: Reviewed & Not Pertinent, Hypertension Patient has homicidal ideation: No - Past Medical History Cardiac Medical History: Reports: Hx Hypertension Renal/ Medical History: Denies: Hx Peritoneal Dialysis Past Surgical History: Reports: Hx Appendectomy, Hx Orthopedic Surgery - R ankle Review of Systems - Review of Systems Notes: CONSTITUTIONAL: No fever, fatigue or weight loss. SKIN: No rash. HENT: No congestion, ear pain, or sore throat. EYES: No recent vision problems or eye pain. ENDOCRINE: No thyroid problems. No polyuria or polydipsia. CARDIOVASCULAR: Positive for palpitations. No edema. RESPIRATORY: No cough, shortness of breath, congestion, or wheezing. GASTROINTESTINAL: No abdominal pain, nausea, vomiting, bloody stools or diarrhea. GENITOURINARY: No dysuria. MUSCULOSKELETAL: No joint pain or swelling. LYMPHATIC: No swollen glands. NEUROLOGIC: No seizures. No headache, focal weakness or sensory changes. HEMATOLOGIC: No unusual bruising or bleeding. PSYCHIATRIC: No depression or anxiety. Physical Exam - Vital signs Vitals: Temp Pulse Resp BP Pulse Ox 98.8 F 83 18 159/60 H 98 01/23/20 13:48 10/15/20 13:48 01/23/20 13:48 01/23/20 13:48 01/23/20 13:48 - General General appearance: Appears well Notes: VITAL SIGNS: Within normal limits. GENERAL: No acute distress, non-toxic appearance. HEAD: Normal with no signs of head trauma. EYES: EOMI, conjunctiva normal, no discharge. EARS: Hearing grossly intact. NOSE: Normal. THROAT: Oropharynx is normal. NECK: Normal range of motion, no tenderness, supple, no lymphadenopathy, No adenopathy, no JVD. CHEST: Clear breath sounds bilaterally. No wheezes, rales, or rhonchi. CARDIAC: Regular rate and rhythm. S1 and S2, without murmurs, gallops, or rubs. VASCULAR: No Edema. Peripheral pulses normal and equal in all extremities. ABDOMEN: Normal and soft with no tenderness, no masses or pulsatile masses. GENITOURINARY: Normal, No tenderness LYMPATHTIC: No lymphadenopathy noted. MUSCULOSKELETAL: Good range of motion of all major joints. Extremities without clubbing, cyanosis or edema. NEUROLOGICAL: Alert and oriented x 3. No focal sensory or strength deficits. Speech normal. Follows commands appropriately. PSYCHIATRIC: Normal Affect, judgement and mood. SKIN: Normal appearance with no rashes or lesions. Course - Re-evaluation Re-evalutation: 01/23/20 22:04 Heart score 0. Describing palpitations more than chest pain. He has a negative troponin. His EKG is unremarkable. I do not suspect PE as patient has no risk factors and his vital signs are within normal limits. On his lab work, he does have a slightly elevated white blood cell count. This can be attributed to the dexamethasone. Patient states that he does feel palpitations and thinks that the dexamethasone is making it worse. I informed him that his CK has normalized from previous. I also instructed him to stop taking the dexamethasone as that can make people anxious and have palpitations. Patient was told to follow-up with his family doctor. He is very agreeable to the plan. Instructed to stay hydrated. I also told him to continue avoiding the C4 supplement. Patient and his are in agreement. 01/23/20 22:06 - Vital Signs Vital signs: Temp Pulse Resp BP Pulse Ox 98.7 F 69 14 152/77 H 96 01/23/20 19:55 01/23/20 19:55 01/23/20 19:55 01/23/20 19:55 01/23/20 19:55 - Laboratory Result Diagrams: 01/23/20 14:18 01/23/20 14:18 Laboratory results interpreted by me: 01/23/20 01/23/20 14:18 14:18 WBC 14.6 H Lymph % (Auto) 6.8 L Absolute Neuts (auto) 13.0 H Seg Neutrophils % 89.4 H Glucose 124 H Creatine Kinase 215 H Discharge - Discharge Clinical Impression: Palpitations Condition: Stable Disposition: HOME, SELF-CARE Instructions: Palpitations (Irregular or Rapid Heartrate) ([facility]) Additional Instructions: Follow-up with your family doctor. Please stop the dexamethasone that was prescribed to you as that can be making you have palpitations. Return to the ER for any chest pain, lightheadedness, worsening symptoms. Referrals: [facility] [[facility]] - Follow up as needed
--- NOTE | 2020-01-23 21:53 | EKG REPORT ---
SEVERITY:- NORMAL ECG - SINUS RHYTHM : Confirmed by: Andra Berg 23-Jan-2020 21:53:04
== END 2020-01-23 21:39 | disposition home or self-care (01) ==
LOC: ER 13:14
DX: R00.2 Palpitations (principal); R07.9 Chest pain, unspecified; I10 Essential (primary) hypertension
CPT/HCPCS: 36415; 71045; 80053; 82550; 83735; 84484; 85025; 85610; 85730; 93005; 93010; 99285